=== PATIENT | female | born 1955 | race Caucasian/White ===

== ENCOUNTER 2019-04-17 08:16 | Emergency (ER) | payer OTHER ==
[~2019-04-17] VITALS: Ht 167.6 cm; Wt 81.8 kg
[2019-04-17] MEDS ORDERED: NS 1,000 ML IV SCH (08:44)
[2019-04-17 09:26] LABS: BASO % 0.7 % (0.0-1.0); EOS # 0.1 10^3/uL (0.0-0.50); EOS % 1.7 % (0.0-3.0); HEMATOCRIT 43.7 % (36.0-47.0); HEMOGLOBIN 14.2 g/dl (12.0-15.5); LYMPH % 24.9 % (24.0-44.0); MEAN CORPUSCULAR HEMOGLOBIN 29.5 pg (27.0-33.0); MEAN CORPUSCULAR HGB CONC 32.5 g/dl (32.0-36.5); MEAN CORPUSCULAR VOLUME 90.9 fl (80.0-96.0); MONO # 0.4 10^3/uL (0.0-0.8); MONO % 10.8 % (0.0-5.0); NEUTROPHILS # 2.5 10^3/uL (1.8-7.7); NEUTROPHILS % 61.7 % (36.0-66.0); PLATELET COUNT, AUTOMATED 150 10^3/uL (150-450); RED BLOOD COUNT 4.81 10^6/uL (4.00-5.40); WHITE BLOOD COUNT 4.1 10^3/uL (4.0-10.0)
[2019-04-17] MEDS ORDERED: ISOVUE-370 76% 100ML VIAL (Q9967) As Ordered ONE (09:35)
[2019-04-17 09:56] LABS: ALBUMIN 3.7 GM/DL (3.2-5.2); ALT/SGPT 19 U/L (12-78); BILIRUBIN,DIRECT < 0.1 MG/DL (0.0-0.2); BILIRUBIN,TOTAL 0.5 MG/DL (0.2-1.0); LIPASE 169 U/L (73-393); TOTAL PROTEIN 6.5 GM/DL (6.4-8.2)
[2019-04-17 10:49] LABS: BLOOD UREA NITROGEN 15 MG/DL (7-18); CALCIUM LEVEL 8.5 MG/DL (8.8-10.2); CARBON DIOXIDE LEVEL 30 MEQ/L (21-32); CHLORIDE LEVEL 107 MEQ/L (98-107); CREATININE FOR GFR 0.73 MG/DL (0.55-1.30); GLOMERULAR FILTRATION RATE > 60.0 (>45); GLUCOSE, FASTING 91 MG/DL (70-100); POTASSIUM SERUM 3.9 MEQ/L (3.5-5.1); SODIUM LEVEL 142 MEQ/L (136-145)
[2019-04-17] MEDS ORDERED: NORC1TAB7 PO (11:12)
[2019-04-17] MEDS ORDERED: FLAG500T PO (11:13)
[2019-04-17] MEDS ORDERED: CIPR-249 PO (11:13)
--- NOTE | 2019-04-17 11:25 | REP ---
REASON: right lower quadrant pain. CONTRAST: 100 mL of Isovue 370. PRIORS: None. Lung bases are clear. Multiple low density lesions are seen throughout the hepatic parenchyma. The ones large enough to be evaluated by CT show water Hounsfield unit readings. Multiple lesions are too small for precise CT characterization. No abnormal enhancement is seen in the liver. The gallbladder, spleen, pancreas, adrenal glands, and kidneys are within normal limits. The abdominal aorta and para-aortic regions are within normal limits. The bowel loops and their mesenteries are within normal limits. The appendix is well visualized and by CT criteria, it is within normal limits. There is no periappendiceal fatty infiltration. There is no fatty infiltration or fluid in the mesoappendix. There is no free fluid or free air. CT PELVIS: There is no mass or adenopathy. There is no free fluid or free air. The bowel loops and their mesenteries are within normal limits. Bone window technique through the examination shows the osseous structures to be within normal limits for the patient's age. IMPRESSION: 1. Multiple hepatic cysts are suspected. Followup is suggested. 2. No evidence of acute intra-abdominal or intrapelvic disease. No evidence of appendicitis. Electronically Signed by Zach Das DO 04/17/2019 12:57 P
[2019-04-17 12:45] VITALS: BP 141/93
== END 2019-04-17 12:53 | disposition home or self-care (01) ==
LOC: M ED 08:16
DX: K76.89 Other specified diseases of liver (principal)
CPT/HCPCS: 36415; 74177; 80047; 80048; 80076; 83690; 85025; 99285; Q9967

== ENCOUNTER → 2019-08-18 | Outpatient (CLI) | payer OTHER ==
[~2019-08-18] MED LIST: CIPR-249 PO; FLAG500T PO; NORC1TAB7 PO
--- NOTE | 2019-08-18 16:20 | REP ---
BILATERAL MAMMOGRAM WITH 3D TOMOSYNTHESIS: No family history of breast cancer. Tyrer-zick lifetime risk of breast cancer is 5.3%. Comparison mammogram 04/21/14 as well as other prior studies. Breast parenchyma demonstrates moderate heterogenous density bilaterally. No mass or architectural distortion is seen bilaterally. There appear to be tiny calcifications in the upper outer quadrant of the left breast somewhat posteriorly. I would recommend magnification views to further evaluate. IMPRESSION: ACR 0 incomplete. There appear to be clustered microcalcifications posteriorly in the upper outer quadrant of the left breast. Recommend magnification views to further evaluate. BIRADS 0: BI-RADS/ACR category 0 mammogram, Incomplete: Need additional imaging evaluation and/or prior mammograms for comparison. This mammogram was interpreted with the aid of an FDA-approved computer-aided detection system. The patient states she had a clinical breast exam in 08/2019. The patient letter being requested is M0.
== END ==
LOC: M WHC 14:07
PROVIDERS: ATTEND Nurse Practitioner Women's Health
DX: Z12.31 Encounter for screening mammogram for malignant neoplasm of breast (principal)

== ENCOUNTER → 2019-08-18 | Outpatient (REF) | payer OTHER | LOC: M PLALAB 14:41 | PROVIDERS: ATTEND Nurse Practitioner Women's Health | DX: Z12.4 Encounter for screening for malignant neoplasm of cervix (principal) ==

== ENCOUNTER → 2019-08-25 | Outpatient (CLI) | payer OTHER ==
--- NOTE | 2019-08-25 13:47 | REP ---
Digital diagnostic unilateral left breast mammography with CAD: History: Screening mammography from August 18, 2019 was BIRADS category 0 incomplete because of some microcalcifications grouped in the upper outer quadrant of the left breast not definitely apparent previously. Comparison prior study is from 2013. Diagnostic imaging was recommended. Findings: Magnified focal spot compression CC, true mediolateral, and MLO views of the left breast were obtained. These confirm the presence of a loose grouping of predominantly punctate microcalcifications of different sizes in the upper outer quadrant of the left breast. One or two of these are kaz shaped. No soft tissue mass is seen. No spiculation is observed. No additional abnormality. Impression: BIRADS 4: BI-RADS/ACR category 4 mammogram. Suspicious Abnormality - biopsy should be considered. BIRADS category 4 suspicious left breast imaging. Microcalcific grouping upper outer quadrant left breast. Stereotactic needle biopsy of the left breast recommended. This mammogram was interpreted with the aid of an FDA-approved computer-aided detection system. The patient states she had a clinical breast exam in August 2019 The patient letter being requested is m4 . Electronically Signed by Justin Gee MD 08/25/2019 05:51 P
== END ==
LOC: M RAD 13:02
PROVIDERS: ATTEND Nurse Practitioner Women's Health
DX: R92.2 Inconclusive mammogram (principal)

== ENCOUNTER → 2019-09-06 | Outpatient (CLI) | payer OTHER ==
[~2019-09-06] MED LIST changes: +BRONCHW PO
--- NOTE | 2019-09-06 16:11 | REP ---
Focused left breast sonography: History: Left breast lump at 1 o'clock position. Abnormal mammography on August 25, 2019 showing microcalcifications in the left breast upper outer quadrant. Sonographic findings: The left breast is scanned and 1 o'clock position. There is a hypoechoic somewhat irregular possibly spiculated nodule at 1 o'clock in the left breast located 6.3 cm from the nipple. This lesion measures 9 x 7 x 15 mm in greatest diameter. There are some echogenic foci within it. It may correspond to the mammographic abnormality. It must be considered suspicious on sonographic criteria. Impression: BIRADS category four suspicious focused left breast sonography. Recommend ultrasound guided needle biopsy of this target at 1 o'clock in the left breast with needle biopsy marker clip placement and post clip placement left breast mammography. Electronically Signed by Justin Gee MD 09/06/2019 06:18 P
== END ==
LOC: M RAD 14:19
PROVIDERS: ATTEND Surgery
DX: N63.20 Unspecified lump in the left breast, unspecified quadrant (principal)

== ENCOUNTER → 2019-09-10 | Outpatient (CLI) | payer OTHER ==
[~2019-09-10] MED LIST changes: +LIDOCAINE 1% MDV 20ML VIAL As Ordered ONE; +SODIUM BICARBONATE 8.4% INJ 50MEQ 50 ML VIAL As Ordered ONE
[2019-09-10 09:49] VITALS: BP 151/87
--- NOTE | 2019-09-10 10:19 | REP ---
Digital diagnostic unilateral left breast mammography with CAD: History: The patient is status post ultrasound-guided needle biopsy. Comparison mammography August 25, 2019. Findings: Craniocaudad and true ML views of the left breast demonstrate that the marker clip is seen at the site where prior mammography showed microcalcifications in the upper outer quadrant. There are fewer microcalcifications visible. No significant hematoma is seen. Impression: Marker clip in good position relative to the previously identified grouping of microcalcifications in the upper outer quadrant. Electronically Signed by Justin Gee MD 09/10/2019 10:42 A
--- NOTE | 2019-09-10 12:43 | ROOPDOC ---
[facility] Report Of Operation Report of Operation DATE OF PROCEDURE: 09/10/19 PREPROCEDURE DIAGNOSES: Left breast mass POSTPROCEDURE DIAGNOSES: left breast mass PROCEDURE: Ultrasound guided Left breast mass biopsy with clip placement SURGEON: Kaylyn Shelton D.O. OCCUPATIONAL MEDICINE OFFICER: ANESTHESIA: local anesthetic, 12 cc ESTIMATED BLOOD LOSS: Approximately 1 ml COMPLICATIONS: none DESCRIPTION OF PROCEDURE: Lidocaine [id number] Expiration 10/2020 Sodium Bicarbonate 8.4% lot [id number] Expiration May 09 2020 Hydromark clip lot [id number] Expiration 06/16/2022 REF [id number] Bx device: BARD [id number] x10 cm [id number] Expiration 07/05/2022 REF [id number] Informed consent was obtained in the preop area. The most common risk and possible complications including bleeding, hematoma, bruising, infection, injury to surrounding structures were explained to the patient and she expressed understanding. Patient was taken to the procedure room and placed on the bed in the supine position with the left upper extremity placed above the head. Appropriate time out was done stating patients name, date of , and the procedure to be performed. The left breast was prepped and draped in the usual fashion. The ultrasound was used to confirm the location of the lesion in the left breast at 1:00 6 centimeters from the nipple. Plain Lidocaine 1% and 8.4% sodium bicarbonate 10:1 mix was used to numb the skin, the biopsy site and tissues along the anticipated biopsy tract. Small skin incision was made with blade number 11. BARD Marquee 14G cannula with introducer ([id number]) was inserted through the incision and advanced under the ultrasound guidance to position immediately adjacent to the lesion. Next, the introducer was removed and BARD Marquee 14G biopsy device was places in the cannula. Pre-biopsy imaging, and post-biopsy imaging were captured. Five good core biopsies were taken at various levels of the lesion. Next, the biopsy device was withdrawn and a clip introducer was inserted into the biopsy site via the cannula. The Hydromark clip was deployed under direct vision. Post-clip placement image was captured. Manual pressure over the biopsy cavity and tract was held after the clip introducer was withdrawn. No bleeding was noted upon removal of the pressure. Post-biopsy mammogram of the left breast was obtained and showed clip in expected position. Postprocedural dressing was placed. Patient tolerated procedure well and was taken to the recovery unit in stable condition. Discharge instructions were discussed with the patient and she expressed understanding. KAYLYN Fuentes DO Sep 10, 2019 12:43
--- NOTE | 2019-09-11 09:06 | REP ---
Focused left breast sonography: Sonographic guidance is provided Dr. Bharat sheikh ultrasound-guided breast biopsy procedure. Electronically Signed by Justin Gee MD 09/11/2019 08:57 A
== END ==
LOC: M IRPRO 08:06
PROVIDERS: ATTEND Surgery
DX: D05.12 Intraductal carcinoma in situ of left breast (principal)

== ENCOUNTER → 2019-09-14 | Outpatient (CLI) | payer OTHER ==
[~2019-09-14] MED LIST changes: -LIDOCAINE 1% MDV 20ML VIAL As Ordered ONE; -SODIUM BICARBONATE 8.4% INJ 50MEQ 50 ML VIAL As Ordered ONE
[2019-09-14 17:33] LABS: BASO % 0.5 % (0.0-1.0); EOS # 0.1 10^3/uL (0.0-0.5); HEMATOCRIT 46.1 % (36.0-47.0); HEMOGLOBIN 14.4 g/dl (12.0-15.5); LYMPH # 1.6 10^3/uL (1.5-5.0); LYMPH % 28.8 % (24.0-44.0); MEAN CORPUSCULAR HEMOGLOBIN 28.9 pg (27.0-33.0); MEAN CORPUSCULAR HGB CONC 31.2 g/dl (32.0-36.5); MEAN CORPUSCULAR VOLUME 92.4 fl (80.0-96.0); MONO # 0.5 10^3/uL (0.0-0.8); MONO % 9.3 % (0.0-5.0); NEUTROPHILS # 3.3 10^3/uL (1.5-8.5); NEUTROPHILS % 59.2 % (36.0-66.0); PLATELET COUNT, AUTOMATED 170 10^3/uL (150-450); RED BLOOD COUNT 4.99 10^6/uL (4.00-5.40); WHITE BLOOD COUNT 5.5 10^3/uL (4.0-10.0)
[2019-09-14 18:06] LABS: ALBUMIN 4.1 GM/DL (3.2-5.2); ALT/SGPT 20 U/L (12-78); BILIRUBIN,TOTAL 0.6 MG/DL (0.2-1.0); BLOOD UREA NITROGEN 11 MG/DL (7-18); CARBON DIOXIDE LEVEL 31 MEQ/L (21-32); CHLORIDE LEVEL 105 MEQ/L (98-107); CREATININE FOR GFR 0.88 MG/DL (0.55-1.30); GLOMERULAR FILTRATION RATE > 60.0 (>45); GLUCOSE, FASTING 88 MG/DL (70-100); POTASSIUM SERUM 4.2 MEQ/L (3.5-5.1); SODIUM LEVEL 141 MEQ/L (136-145); TOTAL PROTEIN 7.2 GM/DL (6.4-8.2)
--- NOTE | 2019-09-14 20:12 | REPPI ---
Clinical: Preoperative assessment . Comparison: None . Technique: PA and lateral. Findings: The mediastinum and cardiac silhouette are normal. The lung rodriguez are clear and without acute consolidation, effusion, or pneumothorax. The skeletal structures are intact and normal. Impression: 1. No acute cardiopulmonary process. Electronically Signed by Rivera Knight MD 09/14/2019 08:04 P
== END ==
LOC: M PLAIMG 15:57
PROVIDERS: ATTEND Surgery
DX: Z01.818 Encounter for other preprocedural examination (principal); Z98.890 Other specified postprocedural states

== ENCOUNTER → 2019-09-21 | Outpatient (CLI) | payer OTHER | LOC: M PLALAB 11:42 | PROVIDERS: ATTEND Surgery | DX: Z01.818 Encounter for other preprocedural examination (principal) ==

== ENCOUNTER 2019-10-07 06:38 | Day surgery (SDC) | payer OTHER ==
[~2019-10-07] VITALS: Ht 165.1 cm; Wt 79.8 kg
[~2019-10-07 06:38] MED LIST changes: +HEPARIN SOD (PORCINE) 5000 UNITS/ML VIAL (J1644 PER 1000UNITS) SQ ONE; +LIDOCAINE 1% MDV 20ML VIAL SQ PRN; +LIDOCAINE 2% INJ 100 MG/5 ML SDV (FOR ANES.) As Ordered ONE; +LR 1,000 ML IV ONE; +MIDAZOLAM INJ 2 MG/2 ML VIAL (J2250) As Ordered ONE; +ONDANSETRON 4MG/2ML VIAL (J2405) As Ordered ONE; +ROCURONIUM BROMIDE 50 MG/5 ML VIAL As Ordered ONE; +SUGAMMADEX SODIUM 500 MG/5 ML VIAL (BRIDION) As Ordered ONE; +ceFAZolin SOD 2 GM in IV 1 EA IV ONE; +dexameTHASONE 4 MG/ML 1ML VIAL (J1100) As Ordered ONE; +fentaNYL 250 MCG/5 ML INJECTION (J3010) As Ordered ONE; +propofoL 200 MG/20 ML VIAL As Ordered ONE
[2019-10-07] MEDS ORDERED: LIDOCAINE 5% (LIDODERM) PATCH As Ordered ONE (07:15)
[2019-10-07] MEDS ORDERED: LIDOCAINE 1% MDV 20ML VIAL As Ordered ONE (07:25)
[2019-10-07] MEDS ORDERED: LIDOCAINE 5% (LIDODERM) PATCH TD ONE (08:00)
[2019-10-07] MEDS ORDERED: CONRAY-60 60% 50ML VIAL (Q9961) As Ordered ONE (08:14)
[2019-10-07] MEDS ORDERED: LIDOCAINE 1% SDV INJ 30 ML VIAL As Ordered ONE (10:29)
[2019-10-07] MEDS ORDERED: METHYLENE BLUE 0.5% (5MG/ML) 10 ML AMP (PROVAYBLUE)(Q9968 PER 1MG) As Ordered ONE (10:29)
[2019-10-07] MEDS ORDERED: BUPIVACAINE HCL 0.25% 30 ML VIAL As Ordered ONE (10:29)
[2019-10-07] MEDS ORDERED: METOCLOPRAMIDE INJ 10MG/2ML VIAL (J2765) As Ordered ONE (11:12)
--- NOTE | 2019-10-07 11:12 | REP ---
Left Breast Lymphoscintigraphy The procedure was performed by Sangeeta Valente [facility] [[email or web address]], under the direct supervision of Dr. Mena. The risks and benefits of the procedure were explained to the patient and informed consent was obtained both verbally and written. Directly prior to the start of the procedure, a formal timeout was completed in the procedure room. Using topical anesthetic and sterile technique .935 mCi of technetium 99m filtered sulfur colloid was injected subdermally in eight fractionated periareolar injections. Images obtained 1 hour after injection show dominant left axillary focus. Impression: 1. Dominant left axillary focus. Reviewed by NANCY Lux 10/07/2019 10:32 A Electronically Signed by Javon Mena MD 10/07/2019 11:03 A
--- NOTE | 2019-10-07 11:12 | REP ---
Left breast localization This procedure is performed by NANCY Rendon, under the personal supervision of Dr. Mena. The risks and benefits of the procedure were explained to the patient and informed consent was obtained both verbally and written. Directly prior to the start of the procedure, a formal timeout was done in the procedure room. The lateral approach was utilized. Both the marker clip and posterior grouping of microcalcifications was localized using mammographic guidance. The skin was prepped and draped in a sterile fashion. 5 ml of 1% lidocaine 10 mg/ml was used as a local anesthetic. Two 9-cm [place] needle wire systems were inserted, one anterior to the microclip and the other posterior to the microcalcifications. A followup mammographic images demonstrate good needle placement. The patient tolerated the procedure well and there were no immediate complications. Reviewed by NANCY Lux 10/07/2019 10:34 A Electronically Signed by Javon Mena MD 10/07/2019 11:03 A
[2019-10-07] MEDS ORDERED: propofoL 500 MG/50 ML VIAL As Ordered ONE ×2 (11:13→12:16)
[2019-10-07] MEDS ORDERED: ACETAMINOPHEN 1000MG 100ML IV BTL (OFIRMEV) (J0131 PER 10MG) As Ordered ONE (11:33)
[2019-10-07] MEDS ORDERED: PHENYLephrine HCL 500 MCG/5 ML (100MCG/ML) SYRINGE (J2370) As Ordered ONE (11:37)
[2019-10-07] MEDS ORDERED: TRAM50TA2 PO (14:52)
[2019-10-07] MEDS ORDERED: HYDROMORPHONE HCL 0.5 MG/ 0.5 ML SYRINGE (J1170 PER 1) IV PRN (15:00)
[2019-10-07] MEDS ORDERED: PERCOCET 5MG/325MG TAB PO PRN (15:00)
[2019-10-07] MEDS ORDERED: LR 1,000 ML IV SCH (15:00)
[2019-10-07] MEDS ORDERED: ONDANSETRON 4MG/2ML VIAL (J2405) IV PRN (15:00)
[2019-10-07] MEDS ORDERED: PROMETHAZINE INJ 25 MG/ML VIAL (J2550) IV ONE (15:00)
[2019-10-07] MEDS ORDERED: fentaNYL 100 MCG/2 ML INJECTION (J3010) IV PRN (15:00)
--- NOTE | 2019-10-07 17:16 | REP ---
SPECIMEN RADIOGRAPH: The surgical specimen radiograph is performed. The two localizing wires are seen on each side of the surgical specimen bracketing the metallic clip from the recent biopsy as well as the residual microcalcifications which were posterior to the clip. Radiographically there appears to be adequate surrounding tissue margins. Electronically Signed by Javon Mena MD 10/08/2019 12:40 P
[2019-10-07 18:25] VITALS: BP 122/60
--- NOTE | 2019-10-07 22:47 | ROOPDOC ---
[facility] Report Of Operation Report of Operation DATE OF PROCEDURE: 10/07/19 PREPROCEDURE DIAGNOSES: Left breast cancer POSTPROCEDURE DIAGNOSES: left breast cancer PROCEDURE: Left breast lumpectomy and left sentinel lymph node biopsy SURGEON: Kaylyn Latham D.O. WEIGHER PACKING: ANESTHESIA: general ESTIMATED BLOOD LOSS: Approximately 5 mL. COMPLICATIONS: none REMARKS: two wires, clip and calcifications identified on the intraop imaging. Dr Mena from radiology confirmed that specimen looks good and there is no need for additional excision. DESCRIPTION OF PROCEDURE: INDICATIONS: Ms. De La O is a 64-year-old woman who was found to have suspicious calcifications on screening left breast mammogram. Physical exam she was found to have a palpable mass which was biopsied with the aid of ultrasound and came back as invasive ductal carcinoma, ER positive, CA positive, HER-2 negative, grade 2 with Ki-67 of 90%. Her genetic testing was negative. She opted for [address] conservative surgery with sentinel lymph node biopsy on the left. She was medically cleared for surgery by her primary care doctor. Risks and possible complications of surgical procedure including bleeding, infection and injury to surrounding structures were explained to the patient and she wished to proceed. Consent was signed. My initials were placed on the operative site (left). Since patient has an active diagnosis of cancer, subcutaneous injection of 5000 units of heparin was done in Preop. Wire loc alization of the lesion and injection of radioactive tracer were done in radiology department preoperatively. Two wires were placed demarcating extent of calcifications and the clip marking the invasive tumor. Imaging were reviewed post wire placement. Lymphoscintigraphy results was also reviewed preoperatively. DETAILS: Patient was taken to the operating room and placed on the operating room table. She was given Versed on her way to OR and felt very dizzy upon arrival. This slowly improved prior to induction of general anesthesia. A sign in was called stating patients name, date of and the procedure to be done. Preoperative antibiotics were infused. Smooth induction of general anesthesia was done. Patients hands were extended on arm rests. Care was taken not to over extend the arms. Patients left breast and axilla were prepped and draped in the usual fashion. Care was taken not to displace the wires. Appropriate time out was done and patients name, date of , and the procedure to be done were confirmed. Procedure was started with sentinel lymph node biopsy. Neoprobe was used to locate area of maximum intensity of the signal. Local anesthetic using 1% lidocaine and 0.25 % Marcaine 50/50 mix was injected. An incision was made with scalpel number 15 at the inferior aspect of axillary hair line in the left axilla where the maximum signal was identified. The sharp and blunt dissection was continued through the subcutaneous adipose tissue. Clavipectoral fascia was opened. Neoprobe was used to guide the dissection. First sentinel lymph node was identified and excised. The ex-vivo 10 second count was 9974. Second sentinel lymph node was identified and excised as well. The ex-vivo 10 second count was 3659. The specimens were labeled with patients name and left breast sentinel lymph node number 1 and number 2 respectively and sent to pathology. No additional lymph nodes with high radioactive signal were identified. The 10 second count of the background was 97. Adequate hemostasis was assured. Additi onal local anesthetic was injected into surrounding tissues. Wound was irrigated. Clavipectoral fascia was closed with 3-0 Vicryl interrupted suture. Dermal layer was closed at the end of the case with 3-0 Monocryl and skin was closed with 4-0 Monocryl. Next, our attention was turned toward the left breast. A lateral incision was made between the wires after previous local anesthetic injection. Subcutaneous skin flaps were raised and both wires were carefully pulled into the wound. Dissection was carries outside the bracketed area of the wires. Hydromark clip was identified in the specimen tissue with intraoperative ultrasound exa mination. The end of the wires were identified and the whole lumpectomy was excised. Margins were marked with the surgical inking kit following the standard colors recommendations. Specimen was placed on the grid and placed in [facility] specimen Imaging. The image revealed two wires, the Hydromark clip adjacent to the wire and the calcifications. At this time radiology department was called to aid with evaluation of excised specimen. Dr Mena states that the lumpectomy looks good and there is no need for additional excision. The specimen was labeled with patients name and left breast lumpectomy and sent to pathology. At this point five additional specimen margins were taken: deep, inferior, superior, medial, and anterior. All new margins, defined as margin farthest away from lumpectomy cavity, were marked with black ink. Each margin was sent as a separate specimen with appropriate labeling. Adequate hemostasis was assured. Additional local anesthetic was injected into surrounding tissues. Clips were placed to primo the cavity. space was approximated with 3-0 Vicryl. The dermis was closed with 3-0 Monocryl and skin was closed with 4-0 Monocryl. Dermabond glue was placed over the incision. Patient emerged from the anesthesia without any problems. Fluffs were placed over the operative site and patients chest was wrapped snuggly in the ANSELMO wrap. Patient tolerated procedure well and was taken to recovery unit in stable condition. EBL: 5 cc KAYLYN LATHAM DO Oct 07, 2019 22:47
== END 2019-10-07 18:50 | disposition home or self-care (01) ==
LOC: M SDC 06:38
PROVIDERS: ATTEND Surgery
DX: C50.412 Malignant neoplasm of upper-outer quadrant of left female breast (principal); Z17.0 Estrogen receptor positive status [ER+]; K21.9 Gastro-esophageal reflux disease without esophagitis; J30.9 Allergic rhinitis, unspecified; Z88.6 Allergy status to analgesic agent
CPT/HCPCS: 19125; 36415; 38525; 76098; 78195; 86850; 86900; 86901; 88305; 88307; 88342; A9541; J0131; J0690; J1100; J1644; J2250; J2370; J2405; J2765; J3010

== ENCOUNTER → 2019-10-28 | Outpatient (CLI) | payer OTHER ==
[~2019-10-28] MED LIST changes: -HEPARIN SOD (PORCINE) 5000 UNITS/ML VIAL (J1644 PER 1000UNITS) SQ ONE; -LIDOCAINE 1% MDV 20ML VIAL SQ PRN; -LIDOCAINE 2% INJ 100 MG/5 ML SDV (FOR ANES.) As Ordered ONE; -LR 1,000 ML IV ONE; -MIDAZOLAM INJ 2 MG/2 ML VIAL (J2250) As Ordered ONE; -ONDANSETRON 4MG/2ML VIAL (J2405) As Ordered ONE; -ROCURONIUM BROMIDE 50 MG/5 ML VIAL As Ordered ONE; -SUGAMMADEX SODIUM 500 MG/5 ML VIAL (BRIDION) As Ordered ONE; +TRAM50TA2 PO; -ceFAZolin SOD 2 GM in IV 1 EA IV ONE; -dexameTHASONE 4 MG/ML 1ML VIAL (J1100) As Ordered ONE; -fentaNYL 250 MCG/5 ML INJECTION (J3010) As Ordered ONE; -propofoL 200 MG/20 ML VIAL As Ordered ONE
--- NOTE | 2019-10-29 09:17 | RADONC ---
DATE OF SERVICE: 10/28/2019 DIAGNOSIS: Invasive ductal carcinoma of the left breast [id number], stage I. CHIEF COMPLAINT: Breast CA. HISTORY OF PRESENT ILLNESS: Mrs. De La O is a 64-year-old woman, presented with abnormal screening mammography on 08/18/2019 and which reported for suspicious microcalcification grouping upper outer quadrant of the left breast. Left breast sonography on 09/06/2019 confirmed suspicious focus at 1 o'clock and recommended ultrasound-guided needle biopsy. Bilateral MRI on 09/21/2019,reported enhancing spiculated mass measuring about 1.2 x 1.2 x 1.6 cm in the upper outer quadrant of the left breast. Patient underwent stereotactic left breast biopsy on 10/07/2019, and it showed invasive ductal carcinoma with mucinous features, grade 2, ER 100%, WV 10%, HER2/ya negative, K67 90%. She underwent left breast lumpectomy and sentinel lymph node biopsy. Pathology showed invasive ductal carcinoma, size was 1.5 cm, grade 2 of 3. The final margin was free. 2 sentinel lymph nodes were negative. ER 100% positive, WV 10% moderate intensity, HER2 negative, Ki67 90%. Her oncotype DX came back recurrent score of 12. No CT benefit. PAST MEDICAL HISTORY: She had one section. CURRENT MEDICATIONS: None except multivitamins and D3. REVIEW OF SYSTEMS: CONSTITUTIONAL: She denies fever, chills, night sweats, fatigue or recent weight changes. HEENT: Denies visual disturbance. Denies hearing problems. RESPIRATORY: denies wheezing , shortness of breathing. or cough CARDIOPULMONARY: No chest pain. Denies palpitations, dizziness. She denies shortness of breath, coughing or wheezing. GASTROINTESTINAL: Denies nausea, vomiting, constipation, diarrhea. No rectal bleeding. GENITOURINARY: Denies urinary frequency, dysuria, hematuria, incontinence, or urgency. MUSCULOSKELETAL: Denies bone pain, muscle pain, joint pain. FACILITY DESIGNER: Denies weakness, numbness, headache, dizziness. PHYSICAL EXAMINATION: ECOG PERFORMANCE STATUS: 0 GENERAL: She is well developed and nourished, not in apparent distress. HEENT: Normocephalic, atraumatic, oropharynx clear. NECK:There is no palpable lymphadenopathy in the neck, axilla bilaterally. BREAST EXAMINATION: Both breasts are about the same size. There is well-healed lumpectomy scarring in the upper outer quadrant of the left breast, and it is slightly tender on palpation. No nipple discharge or retraction. CARDIOVASCULAR: Regular rhythm and rate. No murmurs. RESPIRATORY: Clear to auscultation. ABDOMEN: Soft, nontender, nondistended without any palpable mass or organomegaly. SKIN: There are no skin lesions. EXTREMITIES: Without any swelling, cyanosis, or clubbing. NEUROLOGICAL: Strength and sensation grossly intact. PSYCHIATRIC: Mood and affect appropriately. Pathological findings as mentioned in HPI. Radiology per findings as mentioned in HPI. ICD-10 code: C50.412. STAGING: Invasive ductal carcinoma of the left breast, stage 1, [id number]. ASSESSMENT AND RECOMMENDATIONS: Mrs. De La O is a 64-year-old pleasant lady, 1, para 1, presented with abnormal screening mammography on 08/18/2019, which showed clustered microcalcifications in the left breast, and the followup ultrasound, MRI confirmed the abnormal finding in the upper quadrant of the left breast. She underwent stereotactic biopsy of the left breast lesion on 09/10/2019, which showed invasive ductal carcinoma with mucinous features and grade 2 ER, WV positive, HER2/ya negative. On 10/07/2019, she underwent left breast lumpectomy and sentinel node biopsy, and she was pathologically stage T1cN0. The oncotype DX performed and the recurrence score 12 and no chemotherapy benefit. The patient was accompanied by her . We have discussed the nature of the disease and role of radiation therapy and treatment options. lumpectomy followed by radiation therapy is equally effective as mastectomy for local treatment and standard of care. She underwent lumpectomy and rdiation therapy will follow. Oncotype DX recurrence score of 12, and no benefit from CT. Radiation therapy will start as lumpectomy scar healed.. I discussed hypofractionation and also regular fractionation schedule. I explained so far there is no differences in side effects and cosmeses. I discussed the procedures and possible side effects associated with the radiation therapy, and I have given them a chance to ask questions and concerns, and they were answered to their satisfaction. [facility]
== END ==
LOC: M ONCR 08:52
PROVIDERS: ATTEND Radiology Radiation Oncology
DX: C50.919 Malignant neoplasm of unspecified site of unspecified female breast (principal)

== ENCOUNTER → 2019-11-01 | Outpatient (CLI) | payer OTHER | LOC: M WHC 09:48 | PROVIDERS: ATTEND Internal Medicine Hematology & Oncology | DX: C50.919 Malignant neoplasm of unspecified site of unspecified female breast (principal) ==

== ENCOUNTER → 2019-12-07 | Outpatient (RCR) | payer OTHER ==
--- NOTE | 2019-11-09 13:40 | RADONC ---
RADIATION ONCOLOGY SIMULATION NOTE DATE: 11/08/2019 Ms. De La O was taken to the CT scan for CT simulation of her left breast field. CT was accomplished without difficulty or discomfort. Radiation treatment planning is underway and radiation treatments will begin subsequently. An immobilization device was created. It will be used throughout the course of treatment. It was created without difficulty or discomfort. I was physically present throughout the course of CT simulation.
--- NOTE | 2019-11-16 14:18 | RADONC ---
RADIATION ONCOLOGY PROGRESS NOTE DATE: 11/15/2019 CHART #: [id number] Ms. De La O underwent her first fraction of radiation today for a dose of 267 cGy to her left breast. It was tolerated without difficulty or discomfort. REVIEW OF SYSTEMS: The patient's review of systems is noncontributory. Denies nausea, vomiting, fevers, chills, night sweats, diplopia, headaches, anxiety or depression, anorexia, weight loss, visual disturbances, chest pain, urinary or bowel difficulties, bone pain, or neurological problems. PHYSICAL EXAMINATION: Clearly, the patient's skin showed no evidence of radiation changes. This was her first fraction. The remainder of her physical exam also remains unchanged. Ms. De La O tolerated her first fraction without difficulty and radiation will continue as scheduled.
--- NOTE | 2019-11-23 08:48 | RADONC ---
RADIATION ONCOLOGY PROGRESS NOTE DATE: 11/22/2019 CHART #: [id number] Mrs. De La O with a diagnosis of invasive ductal carcinoma of the left breast is currently receiving local regional radiotherapy and is tolerating her therapy reasonably well. She is currently at a dose of approximately 2400 cGy of an anticipated 4000 cGy. She denies any nausea, vomiting, coughing, sputum production or hemoptysis. Her energy level is excellent and she is able to maintain most day-to-day activities without any alteration of her lifestyle. Skin irritation is denied. EXAMINATION FINDINGS: The skin within the irradiated volume shows some minimal hyper erythematous areas without evidence of desquamation. There is no palpable peripheral lymphadenopathy and lungs are clear. The patient is concerned about the possibility of getting the flu and has requested a note to advise that she should not be in crowded areas were she is likely to contract influenza. I gave her a note today to that effect. Otherwise, the patient is tolerating her therapy quite well with no significant untoward side effects. PLAN: Treatments to continue.
--- NOTE | 2019-11-27 10:14 | RADONC ---
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 STAGE: [id number], stage I. Mrs. De La O completed her external beam radiotherapy to the entire breast and was simulated today for initiation of her electron beam boost to the lumpectomy scar site. We will be treating her for total of 1000 additional cGy in 5 fractions via a 16 MeV electron beam via a direct en face field assessed at 90%. She completed the 15 treatments, or approximately 4000 cGy, via 3D conformal radiotherapy with a combination of a 10 and 6 MV photon beam. The simulation was completed with no untoward side effects and the information was sent to dosimetry and physics for appropriate planning. [facility] CENTERAraceli
--- NOTE | 2019-11-29 14:17 | RADONC ---
RADIATION ONCOLOGY PROGRESS NOTE DATE: 11/29/2019 CHART #: [id number] Ms. De La O is presently at a dose of 2937 cGy to her left breast and is tolerating treatments quite well at this point with no complaints related to her radiation therapy. She is having no breast or bone pain. REVIEW OF SYSTEMS: The patient's review of systems is noncontributory. Denies nausea, vomiting, fevers, chills, night sweats, diplopia, headaches, anxiety or depression, anorexia, weight loss, visual disturbances, chest pain, urinary or bowel difficulties, bone pain, or neurological problems. PHYSICAL EXAMINATION: Physical examination was deferred as per COVID-19 virus protections. ASSESSMENT AND PLAN: Radiation is well tolerated and will continue as scheduled.
--- NOTE | 2019-12-06 13:25 | RADONC ---
RADIATION ONCOLOGY PROGRESS NOTE DATE OF SERVICE: 12/06/2019 CHART #: [id number] Ms. De La O is presently at a dose of 4205 cGy to her left breast primary site and is tolerating treatments with some discomfort. REVIEW OF SYSTEMS: The patient's review of systems is positive for some skin pain, especially in the inframammary region. It is otherwise noncontributory. Denies nausea, vomiting, fevers, chills, night sweats, diplopia, headaches, anxiety or depression, anorexia, weight loss, visual disturbances, chest pain, urinary or bowel difficulties, bone pain, or neurological problems. PHYSICAL EXAMINATION: The patient's skin shows erythema and tanning present. There is a small area of moist desquamation in the inframammary region. The remainder of her physical exam remains unchanged. ASSESSMENT: Ms. De La O is tolerating treatments with some skin irritation. I have sent in a prescription for Silvadene to be applied topically. In the meantime, radiation to the primary site will continue as scheduled. The skin in that area is in good condition.
[~2019-12-07] MED LIST changes: +CALC600T60 PO; +SILV40CR EXT; +VITA1CHW7 PO
== END ==
LOC: M ONCR 11-08 09:54
PROVIDERS: ATTEND Radiology Radiation Oncology
DX: C50.412 Malignant neoplasm of upper-outer quadrant of left female breast (principal)

== ENCOUNTER 2019-12-10 08:29 | Outpatient (RCR) | payer OTHER ==
--- NOTE | 2019-12-13 06:32 | RADONC ---
RADIATION ONCOLOGY TREATMENT SUMMARY DATE: 12/10/2019 CHART #: [id number] DIAGNOSIS: Left breast cancer. STAGE: I A, T1c, N0, M0. ECOG PERFORMANCE STATUS: 0. TREATMENT SUMMARY: Ms. De La O is very pleasant 64-year-old white female with the diagnosis of a stage I, T1c, N0, M0, moderately differentiated infiltrating ductal carcinoma of the left breast who presented to us status post lumpectomy and sentinel lymph node biopsy for consideration of postoperative radiation therapy for conservative breast management. We treated the patient to her left breast for a total dose of 4005 cGy delivered in 15 fractions of 267 cGy each over 18 elapsed days of 11/15/2019 through 12/03/2019. The patient's left breast was treated on a linear accelerator utilizing 3-D conformal technique with medial and lateral tangential rodriguez and a combination of 6 X and 10 X photons. Following completion of 4005 cGy to the entire left breast, the primary site was boosted for an additional 1000 cGy delivered in five fractions of 200 cGy each over four elapsed days from 12/06/2019 through 12/10/2019. The patient's primary site was treated on a linear accelerator utilizing a 16 MEV electron beam prescribed to the 90% isodose line via non phos technique. This brought the primary site to a total dose of 5005 cGy delivered in 20 fractions over 22 elapsed days from 11/15/2019 through 12/10/2019. Ms. De La O tolerated her treatments quite well and was able complete therapy as prescribed without interruption. I have scheduled the patient to see me again in 1 month for further followup. She will also continue to be followed by her other physicians as well. cc: DO Edwige Mcelroy NP Ryan Tyler, MD
[2019-12-23] MEDS ORDERED: ANAS1TAB2 PO (09:53)
== END 2020-01-06 ==
LOC: M ONCR 08:29
PROVIDERS: ATTEND Radiology Radiation Oncology
DX: C50.412 Malignant neoplasm of upper-outer quadrant of left female breast (principal)

== ENCOUNTER → 2020-01-12 | Outpatient (CLI) | payer OTHER ==
[~2020-01-12] MED LIST changes: +ANAS1TAB2 PO
--- NOTE | 2020-01-15 13:34 | RADONC ---
RADIATION ONCOLOGY FOLLOWUP NOTE DATE: 01/12/2020 This is a telemedicine visit. The patient was informed of the risks including security breech, technological failure, inability to perform a comprehensive physical exam which could delay or prevent an accurate diagnosis, and potential complications from treatment decisions rendered over a telemedicine platform. The patient understands and consented to the use of telehealth services phone only. DIAGNOSIS: Left breast cancer. STAGE: I A, T1c, pN0, M0, grade 2, HER2/ya negative, ER positive, TX positive. ECOG PERFORMANCE STATUS: 0 FOLLOWUP NOTE: Ms. De La O is a delightful 64-year-old white female with the diagnosis of a stage I A, T1c, N0, M0 moderately differentiated invasive ductal carcinoma of the left breast who is presenting to us today for routine followup visit 1 month post completion of external beam radiation therapy. The patient presents today by telephone reporting that she is doing quite well with no complaints at this time related to her radiation therapy disease. She has no breast or bone pain. REVIEW OF SYSTEMS: The patient's review of systems is noncontributory. Denies nausea, vomiting, fevers, chills, night sweats, diplopia, headaches, anxiety or depression, anorexia, weight loss, visual disturbances, chest pain, urinary or bowel difficulties, bone pain, or neurological problems. PHYSICAL EXAMINATION: Physical exam physical exam was deferred as per COVID-19 precautions. This was a telephone consultation. However, the patient does report that her skin is in excellent condition. It is totally healed. All she has left is a minimal roger according to the patient's report. ASSESSMENT: The patient is clinically NOE at this time. I have set her up for routine followup in our office in 6 months' time. She will also continue her followup with her other physicians as well. cc: DO Edwige Mcelroy NP [place], MD Ryan Tyler, MD
== END ==
LOC: M ONCR 09:15
PROVIDERS: ATTEND Radiology Radiation Oncology
DX: C50.412 Malignant neoplasm of upper-outer quadrant of left female breast (principal)

== ENCOUNTER → 2020-04-07 | Outpatient (CLI) | payer OTHER ==
--- NOTE | 2020-05-05 09:20 | REP ---
FOCUSED LEFT BREAST ULTRASOUND HISTORY: Additional imaging requested by Dr. Shelton. Hypoechoic area 1 o'clock 8 cm from the nipple left breast. History of left breast cancer. This report was delayed due to a protracted network disruption episode experienced by this facility. FINDINGS: Focused left breast sonography is performed at the 1 o'clock position. There is a benign appearing septated otherwise simple cyst measuring 6 x 6 x 5 mm. Normal stromal elements are seen in the background. No suspicious finding. IMPRESSION: Small benign cyst 6-mm in diameter 1 o'clock position left breast. MTDD
== END ==
LOC: M WHC 11:38
PROVIDERS: ATTEND Surgery
DX: N63.20 Unspecified lump in the left breast, unspecified quadrant (principal); Z85.3 Personal history of malignant neoplasm of breast

== ENCOUNTER → 2020-06-14 | Outpatient (REF) | payer OTHER ==
[2020-06-14 11:17] LABS: ALBUMIN 3.7 GM/DL (3.2-5.2); ALT/SGPT 21 U/L (12-78); BILIRUBIN,TOTAL 0.5 MG/DL (0.2-1.0); BLOOD UREA NITROGEN 16 MG/DL (7-18); CARBON DIOXIDE LEVEL 30 MEQ/L (21-32); CHLORIDE LEVEL 105 MEQ/L (98-107); CHOLESTEROL LEVEL 167 MG/DL (<200); CHOLESTEROL RISK RATIO 3.408 (<5); CREATININE FOR GFR 0.77 MG/DL (0.55-1.30); FREE T4 1.14 NG/DL (0.76-1.46); GLOMERULAR FILTRATION RATE > 60.0 (>45); GLUCOSE, FASTING 91 MG/DL (70-100); HDL CHOLESTEROL 49 MG/DL (>40); LDL CHOLESTEROL 98 MG/DL (<100); NON-HDL-C 118 MG/DL; POTASSIUM SERUM 3.9 MEQ/L (3.5-5.1); PTH INTACT 48.9 PG/ML (18.5-88.0); SODIUM LEVEL 139 MEQ/L (136-145); TOTAL 25(OH) VITAMIN D 39.2 NG/ML (30.0-100.0); TOTAL PROTEIN 6.8 GM/DL (6.4-8.2); TRIGLYCERIDES LEVEL 102 MG/DL (<150)
[2020-06-14 13:31] LABS: HEMOGLOBIN A1c 5.3 %
== END ==
LOC: M SFHCPLAZ 08:03
PROVIDERS: ATTEND Family Medicine
DX: E55.9 Vitamin D deficiency, unspecified (principal); M85.80 Other specified disorders of bone density and structure, unspecified site; E66.3 Overweight

== ENCOUNTER → 2020-06-29 | Outpatient (CLI) | payer OTHER ==
--- NOTE | 2020-06-29 09:04 | REP ---
INDICATION: HEPATIC CYST COMPARISON: None. TECHNIQUE: Real time coles scale ultrasound examination using curved array transducer. FINDINGS: Liver demonstrates relatively normal contour, size, and echotexture. A septated cyst in the left lobe measures 2.2 x 1.3 x 1.6 cm, a 1.9 x 1.3 x 2.0 cm complex appearing cyst is identified in the left lobe, and a 2.3 x 1.8 x 2.0 cm cyst is identified in the right lobe. The gallbladder demonstrates multiple small echogenic foci without shadowing suggesting benign polyps up to 4 mm. No biliary ductal dilatation is appreciated and the common bile duct measures 3.7 mm diameter. Pancreas is normal. The right kidney is normal and measures 11.1 x 4.5 x 3.5 cm without hydronephrosis. No ascites. IMPRESSION: 1. Three hepatic cysts are identified which demonstrate septations and are otherwise relatively benign in appearance. Findings are similar to CT dated 04/17/2019 (which demonstrated more numerous simple hepatic cysts). 2. Benign appearing gallbladder polyps up to 4 mm. <Electronically signed by Rivera Knight > 06/29/20 0901
== END ==
LOC: M RAD 08:18
PROVIDERS: ATTEND Family Medicine
DX: K76.89 Other specified diseases of liver (principal); K82.4 Cholesterolosis of gallbladder

== ENCOUNTER → 2020-07-26 | Outpatient (CLI) | payer OTHER ==
--- NOTE | 2020-07-26 11:56 | RADONC ---
Radiation Oncology Hx/FUP Radiation Oncology Hx/FUP Date of Service: Jul 26, 2020 Pt Identifier Sabiha De La O is a 64 year old female seen for a followup visit today at the department of radiation oncology for a history of pT1cN0(sn)M0 ER/AL+ HER2- Oncotype <11 Grade 2 IDC of the left upper outer breast. She is s/p lumpectomy and adjuvant RT 40 Gy in 15 fractions to the left whole breast and 10 Gy in 5 fractions to the tumor bed completed 12/10/19. She continues on anastrozole daily. Diagnosis/Treatment History Oncologic History As above Interval History Feels well overall, has some perseverative thoughts about recurrence of her cancer, this bothers her more than any physical symptom. She notes that her left breast has a higher lie that the right, and that she still has some transient occasional migrating left breast pains. Previously these were quite severe and stabbing in quality, now they are aching and infrequent. Not intense. She has preserved ROM in the left arm, no swelling. No skin concerns. She does self exams frequently. She has a mammogram coming in September, she is afraid of the exam, but vows to move forward with screening. She is tolerating the AI, previously had caused some hot flashes which have now subsided. Current Therapy Anastrozole Stage Stage IA pT1cN0(sn)M0 ER/AL+ HER2- Grade 2 left breast IDC Social History: Prior smoker ~5 pk year Non-drinker Allergies / Meds Allergies: Coded Allergies: TAPE (Verified Adverse Reaction, Intermediate, STERI-STRIPS - BLISTERS SKIN, 10/07/19) epinephrine (Verified Adverse Reaction, Intermediate, heart races, 10/07/19) Home Meds Active Scripts Anastrozole (Anastrozole) 1 Mg Tablet, 1 TAB PO DAILY, #90 TAB 3 Refills Prov:RAKESH SAENZ MD 03/23/20 Reported Medications Calcium Carbonate (Calcium) 600 Mg Tablet, 2 TAB PO DAILY for 30 Days, #30 TAB 11/08/19 Cholecalciferol (Vitamin D3) (Vitamin D3) 2,000 Unit Tab.chew, 2000 UNIT PO DAILY 11/04/19 Multivitamin (Chewable-Yamilka) 1 Each Tab.chew, 1 TAB PO DAILY for 30 Days, #30 TAB 09/09/19 Review of Systems Review of Systems Constitutional: Denies: ROS Unabtainable, Chills, Fever, Malaise, Night Sweats, Weakness, Fatigue, Weight Loss, Lethargy, Normal appetite, Other symptoms Eyes: Denies: Pain, Vision change, Conjunctivae inflammation, Eyelid inflammation, Redness, Other HEENT: Denies: Head Aches, Ear Pain, Dysphagia, Sinus Congestion, Post Nasal Drip, Sore Throat, Epistaxis, Other Symptoms Skin: Denies: Rash, Lesions, Jaundice, Bruising, Other Breast: Denies: New Breast Lumps / Masses, Nipple Retraction, Nipple Discharge, Breast Skin Changes, Breast Pain or Tenderness, Other Breast Complaints Pulmonary: Denies: Dyspnea, Cough, Pleuritic Chest Pain, Other Symptoms Cardiovascular: Denies: Chest Pain, Palpitations, Orthopnea, Paroxysmal Noc. Dyspnea, Edema, Lt Headedness, Other Symptoms Gastrointestinal: Denies: Nausea, Vomiting, Abdominal Pain, Diarrhea, Constipation, Melena, Hematochezia, Other Symptoms Genitourinary: Denies: Dysuria, Frequency, Incontinence, Hematuria, Retention, Other Symptoms Hematologic: Denies: Bruising, Bleeding Excessively, Petecchia, Purpura, Enlarg ed Lymph Nodes, Other Hematologic Endocrine: Denies: Polydipsia, Polyphagia, Polyuria, Heat Intolerance, Cold Intolerance, Other Endocrine Sx Musculoskeletal: Denies: Neck pain, Shoulder pain, Arm pain, Back pain, Hand pain, Leg pain, Foot pain, Joint pain, Muscle pain, Spasms, Gout, Joint sweling, Muscle stiffness, Midthoracic pain, Other Neurological: Denies: Weakness, Numbness, Incoordination, Change in Speech, Confusion, Seizures, Other Symptoms Physical Examination Vital Signs Ht 65" Wt 182 lb BMI 30 T 97.2 P 67 RR 16 BP 120/80 O2 98% Pain 0 Fatigue 0 General Exam: Positive: Alert, Cooperative; Negative: No Acute Distress Eye Exam: Positive: PERRLA, EOMI ENT EXAM: Positive: Atraumatic, Pharynx Normal Neck Exam: Positive: Supple; Negative: Lymphadenopathy Chest Exam: Positive: Clear to auscultation, Normal air movement Heart Exam: Positive: Rate Normal, Regular Rhythm Breast Exam: Positive: Skin Changes (Left breast skin with mild hyperpigmentation); Negative: Symmetric Bilaterally (Right breast lies lower than left), Lumps or Masses (Right breast tissue is soft and supple no lesions. Left breast has palpable central fibrosis, no lesions. No axillary lesions BL), Nipple Retraction, Nipple Discharge Abdomen Exam: Positive: Normal bowel sounds, Soft Extremity Exam: Negative: Edema Skin Exam: Positive: Nl turgor and temperature; Negative: Rash Neuro Exam: Positive: Normal Gait, Normal Speech, Cranial Nerves 3-12 NL Psych Exam: Positive: Mental status NL, Mood NL Diagnostic and Laboratory Diagnostic Review Radiologic images, relevant labs and pathology reports were personally reviewed and discussed with Ms. De La O. Assessment and Plan Impression Assessment Ms. De La O is a 64 year old female with a history of pT1cN0(sn)M0 ER/AL+ HER2- Oncotype <11 Grade 2 IDC of the left upper outer breast. She is s/p lumpectomy and adjuvant RT 40 Gy in 15 fractions to the left whole breast and 10 Gy in 5 fractions to the tumor bed completed 12/10/19. She continues on anastrozole daily. She is doing well. Mild post-RT cutaneous sequelae, fibrosis affecting cosmesis CTCAE Gr 2, this is not overly bothersome to her such that she does not want referral to a plastic surgeon at this time, she also has slight hyperpigmentation of the left breast. Explained this is likely permanent. She has no evidence of recurrent or de ashley lesions on exam today. She is compliant with and tolerating her AI. She has mammograms scheduled for September 2020. She has follow up in place with her surgeon and medical oncologist as well. I will see her again in 12 months time. Performance Status ECOG 0 Plan Follow up in 12 months Ms. De La O was encouraged to call with questions or concerns in the interim period. JEFFREY DONNELLY MD Jul 26, 2020 11:55
== END ==
LOC: M ONCR 09:06
PROVIDERS: ATTEND General Practice
DX: Z85.3 Personal history of malignant neoplasm of breast (principal); Z92.3 Personal history of irradiation

== ENCOUNTER → 2020-08-01 | Outpatient (REF) | payer OTHER | LOC: M SFHCPLAZ 10:07 | PROVIDERS: ATTEND Family Medicine | DX: C44.310 Basal cell carcinoma of skin of unspecified parts of face (principal) ==

== ENCOUNTER → 2020-08-28 | Outpatient (CLI) | payer OTHER ==
--- NOTE | 2020-08-28 14:28 | REPMRS ---
Patient History The patient states she had a clinical breast exam in March 2020. Patient is postmenopausal, has history of cancer in the left breast at age 64, and had previous chest radiation therapy at age 64. No known family history of cancer. Malignant radio exam breast specimen of the left breast, October 07, 2019. Malignant localization of breast nodule of the left breast, October 07, 2019. US Guided Breast Biopsy of the left breast, September 10, 2019. 3D TOMOSYNTHESIS WAS PERFORMED. Volpara breast density b. Diagnostic Bilateral Mammo: August 28, 2020 - Exam #: [id number] Bilateral CC and MLO view(s) were taken. Technologist: Conchis Medina, Technologist Prior study comparison: September 10, 2019, left breast digital mammo diagnostic unilateral, performed at [facility]. August 25, 2019, left breast digital mammo diagnostic unilateral, performed at [facility]. FINDINGS: There are scattered fibroglandular densities. There is a fairly symmetric fibroglandular pattern in both breasts. There has been no interval development of masses, areas of architectural distortion or clusters of microcalcifications typical of malignancy. There are expected postsurgical and post radiation changes in the left breast. Assessment: BI-RADS/ACR category 2 mammogram. Benign Findings. Recommendation Routine screening mammogram of both breasts in 1 year (for women over age 40). This mammogram was interpreted with the aid of an FDA-approved computer-aided dectection system. Electronically Signed By: Javon Mena MD 08/28/20 [id number]
== END ==
LOC: M WHC 13:26
PROVIDERS: ATTEND Surgery
DX: C50.412 Malignant neoplasm of upper-outer quadrant of left female breast (principal)
CPT/HCPCS: 77066; G0279

== ENCOUNTER → 2020-09-13 | Outpatient (CLI) | payer OTHER ==
[~2020-09-13] MED LIST changes: +D31000TA2 PO; +THERTAB52 PO
== END ==
LOC: M LABSMTC 12:46
PROVIDERS: ATTEND Anesthesiology
DX: Z01.812 Encounter for preprocedural laboratory examination (principal); Z20.822 Contact with and (suspected) exposure to COVID-19

== ENCOUNTER 2020-09-18 07:55 | Day surgery (SDC) | payer OTHER ==
[~2020-09-18] VITALS: Ht 167.6 cm; Wt 81.2 kg
[~2020-09-18 07:55] MED LIST changes: +NS 1,000 ML IV ONE
[2020-09-18] MEDS ORDERED: propofoL 500 MG/50 ML VIAL As Ordered ONE (09:36)
[2020-09-18] MEDS ORDERED: LIDOCAINE 2% 100MG/5ML SDV (FOR ANES.) As Ordered ONE (09:36)
--- NOTE | 2020-09-18 09:50 | ROOR ---
Patient Name: Sabiha De La O Procedure Date: 09/18/2020 9:28 AM Date of : 1955 Age: 65 Room: [facility] Gender: Female Note Status: Finalized Procedure: Total Colonoscopy to Cecum Indications: Screening for colorectal malignant neoplasm Providers: Ralph Rollins MD Referring MD: Molina Graf MD Requesting Provider: Medicines: Monitored Anesthesia Care Complications: No immediate complications. Procedure: Pre-Anesthesia Assessment: - The heart rate, respiratory rate, oxygen saturations, blood pressure, adequacy of pulmonary ventilation, and response to care were monitored throughout the procedure. The Colonoscope was introduced through the anus and advanced to the cecum, identified by appendiceal orifice and ileocecal valve. The colonoscopy was performed without difficulty. The patient tolerated the procedure well. The quality of the bowel preparation was good. Findings: The perianal and digital rectal examinations were normal. Non-bleeding internal hemorrhoids were found during retroflexion. The hemorrhoids were small and Grade I (internal hemorrhoids that do not prolapse). No other significant abnormalities were identified in a careful examination of the remainder of the colon. The exam was otherwise without abnormality on direct and retroflexion views. Impression: - Non-bleeding internal hemorrhoids. - The examination was otherwise normal on direct and retroflexion views. - No specimens collected. - The exam was otherwise normal to the cecum. Recommendation: - Patient has a contact number available for emergencies. The signs and symptoms of potential delayed complications were discussed with the patient. Return to normal activities tomorrow. Written discharge instructions were provided to the patient. - High fiber diet. - Discharge patient to home. - Continue present medications. - Repeat colonoscopy in 10 years for screening purposes. - Return to referring physician. - The findings and recommendations were discussed with the patient. Procedure Code(s): --- Professional --- 37073, Colonoscopy, flexible; diagnostic, including collection of specimen(s) by brushing or washing, when performed (separate procedure) Diagnosis Code(s): --- Professional --- Z12.11, Encounter for screening for malignant neoplasm of colon K64.0, First degree hemorrhoids CPT copyright 2019 [employer]. All rights reserved. The codes documented in this report are preliminary and upon truss designer review may be revised to meet current compliance requirements. Ralph Rollins MD Ralph Rollins MD 09/18/2020 9:50:31 AM Electronically signed by Ralph Rollins MD Number of Addenda: 0 Note Initiated On: 09/18/2020 9:28 AM Estimated Blood Loss: Estimated blood loss: none.
[2020-09-18 10:24] VITALS: BP 111/71
== END 2020-09-18 10:26 | disposition home or self-care (01) ==
LOC: M OPP 07:55
PROVIDERS: ATTEND Internal Medicine Gastroenterology
DX: Z12.11 Encounter for screening for malignant neoplasm of colon (principal); K64.0 First degree hemorrhoids; Z92.3 Personal history of irradiation; Z85.3 Personal history of malignant neoplasm of breast; Z88.8 Allergy status to other drugs, medicaments and biological substances; Z91.09 Other allergy status, other than to drugs and biological substances; Z79.899 Other long term (current) drug therapy

== ENCOUNTER → 2020-10-09 | Outpatient (REF) | payer OTHER ==
[~2020-10-09] MED LIST changes: -NS 1,000 ML IV ONE
== END ==
LOC: M SFHCWAGY 10:04
PROVIDERS: ATTEND Nurse Practitioner Women's Health
DX: Z12.4 Encounter for screening for malignant neoplasm of cervix (principal); Z01.419 Encounter for gynecological examination (general) (routine) without abnormal findings

== ENCOUNTER → 2020-11-14 | Outpatient (CLI) | payer OTHER ==
[~2020-11-14] MED LIST changes: +MULTTAB61 PO
--- NOTE | 2020-11-14 10:08 | DEXAMM ---
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 COMPARISON: Comparison DEXA study November 01, 2019 and April 21, 2014.. TECHNIQUE: Bone density was measured using dual-energy x-ray absorptionmetry (DEXA). FINDINGS: AP SPINE L1-L4 BMD 1.226 g/cm2 Young Adult T-Score 0.3 Age Matched Z-Score 1.7. LT FEMUR, TOTAL BMD 0.996 g/cm2 Young Adult T-Score -0.3 Age Matched Z-Score 0.8. LT NECK BMD 0.969 g/cm2 Young Adult T-Score -0.5 Age Matched Z-Score 0.9. RT FEMUR, TOTAL BMD 0.922 g/cm2 Young Adult T-Score -0.7 Age Matched Z-Score 0.4. RT NECK BMD -0.946 g/cm2 Young Adult T-Score -0.7 Age Matched Z-Score 0.7. IMPRESSION: There is normal bone density of the spine. There is normal bone density of the left hip. There is normal bone density of the right hip. The density of the spine has decreased 1.1% since the initial exam on April 21, 2014. The density of the spine decreased 2.3% since most recent exam on November 01, 2019. The density of the left hip has decreased 3.4% since initial exam on April 21, 2014. The density of the left hip has decreased 0.8% since most recent exam on November 01, 2019. The density of the right hip has decreased 5.4% since the initial exam on April 21, 2014. The density of the right hip has decreased 3.2% since the most recent exam on November 01, 2019. FOLLOW-UP: Recommendation for the next bone density exam: 5 years. <Electronically signed by Hugo Gee > 11/14/20 [id number]
== END ==
LOC: M WHC 08:32
PROVIDERS: ATTEND Family Medicine
DX: M85.80 Other specified disorders of bone density and structure, unspecified site (principal)

== ENCOUNTER → 2020-11-28 | Outpatient (REF) | payer OTHER | LOC: M SFHCPLAZ 09:36 | PROVIDERS: ATTEND Family Medicine | DX: R22.31 Localized swelling, mass and lump, right upper limb (principal); L92.9 Granulomatous disorder of the skin and subcutaneous tissue, unspecified ==

== ENCOUNTER → 2021-03-01 | Outpatient (REF) | payer OTHER ==
[2021-03-01 11:18] LABS: ALBUMIN 3.9 GM/DL (3.2-5.2); ALT/SGPT 19 U/L (12-78); BILIRUBIN,TOTAL 0.5 MG/DL (0.2-1.0); BLOOD UREA NITROGEN 14 MG/DL (7-18); CARBON DIOXIDE LEVEL 29 MEQ/L (21-32); CHLORIDE LEVEL 105 MEQ/L (98-107); CHOLESTEROL LEVEL 187 MG/DL (<200); CHOLESTEROL RISK RATIO 3.895 (<5); CREATININE FOR GFR 0.75 MG/DL (0.55-1.30); FREE T4 1.15 NG/DL (0.76-1.46); GLOMERULAR FILTRATION RATE > 60.0 (>45); GLUCOSE, FASTING 92 MG/DL (70-100); HDL CHOLESTEROL 48 MG/DL (>40); LDL CHOLESTEROL 116 MG/DL (<100); NON-HDL-C 139 MG/DL; POTASSIUM SERUM 4.1 MEQ/L (3.5-5.1); SODIUM LEVEL 139 MEQ/L (136-145); TOTAL PROTEIN 6.8 GM/DL (6.4-8.2); TRIGLYCERIDES LEVEL 114 MG/DL (<150)
[2021-03-01 11:21] LABS: TOTAL 25(OH) VITAMIN D 40.2 NG/ML (30.0-100.0)
[2021-03-01 11:29] LABS: PTH INTACT 45.6 PG/ML (18.5-88.0)
== END ==
LOC: M PLALAB 08:11
PROVIDERS: ATTEND Family Medicine
DX: E55.9 Vitamin D deficiency, unspecified (principal); E78.2 Mixed hyperlipidemia

== ENCOUNTER → 2021-07-04 | Outpatient (CLI) | payer OTHER ==
[~2021-07-04] MED LIST changes: +COVI100V IM
--- NOTE | 2021-07-04 10:31 | REP ---
INDICATION: HEPATIC CYST. COMPARISON: 06/29/2020. TECHNIQUE: Real-time sonographic evaluation of right upper quadrant performed. FINDINGS: Multiple sub cm polyps are again seen in the gallbladder up to 4 mm in diameter, stable. No gallstones or gallbladder wall thickening visualized.. There is no intrahepatic or extrahepatic biliary dilatation, common bile duct measures 3 mm in maximum diameter. Multiple cysts are again seen in the liver. The largest 3 cysts are measured: A septated cyst posteriorly on the left measures 3.0 x 2.4 x 1.3 cm, mildly increased in size. A cyst in the superior left lobe measures 2.4 x 1.9 x 1.9 cm. Another simple cyst measures 1.8 x 2.1 x 1.6 cm. The pancreas demonstrates homogeneous echotexture with no gross mass. The right kidney demonstrates no hydronephrosis, with a normal size of 10.7 cm in length. No free fluid is seen. IMPRESSION: Multiple hepatic cysts. There is a septated cyst posteriorly in the left lobe which has mildly increased in size as discussed above. <Electronically signed by Javon Mena > 07/04/21 1026
== END ==
LOC: M RAD 07:07
PROVIDERS: ATTEND Family Medicine
DX: K76.89 Other specified diseases of liver (principal)

== ENCOUNTER → 2021-07-24 | Outpatient (CLI) | payer OTHER ==
[2021-07-24 11:20] LABS: HEMOGLOBIN A1c 5.3 %
[2021-07-24 11:29] LABS: ALBUMIN 3.6 GM/DL (3.2-5.2); BLOOD UREA NITROGEN 15 MG/DL (7-18); CALCIUM LEVEL 9.7 MG/DL (8.8-10.2); CARBON DIOXIDE LEVEL 33 MEQ/L (21-32); CHLORIDE LEVEL 106 MEQ/L (98-107); CREATININE FOR GFR 0.73 MG/DL (0.55-1.30); GLOMERULAR FILTRATION RATE > 60.0 (>45); GLUCOSE, FASTING 92 MG/DL (70-100); PHOSPHORUS LEVEL 3.5 MG/DL (2.5-4.9); POTASSIUM SERUM 4.3 MEQ/L (3.5-5.1); PTH INTACT 22.4 PG/ML (18.5-88.0); SODIUM LEVEL 142 MEQ/L (136-145); TOTAL 25(OH) VITAMIN D 44.3 NG/ML (30.0-100.0)
[2021-07-26 04:07] LABS: INSULIN LEVEL 7.7 uIU/mL (2.6-24.9)
== END ==
LOC: M PLALAB 08:15
PROVIDERS: ATTEND Family Medicine
DX: E55.9 Vitamin D deficiency, unspecified (principal)

== ENCOUNTER → 2021-07-25 | Outpatient (CLI) | payer OTHER ==
--- NOTE | 2021-07-25 09:33 | RADONC ---
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 She is s/p lumpectomy and adjuvant RT 40 Gy in 15 fractions to the left whole breast and 10 Gy in 5 fractions to the tumor bed completed 12/10/19. She continues on anastrozole daily. Diagnosis/Treatment History Oncologic History As above Survivorship Test Due Next Last result Notes TSH, T4* 6m post-tx, then q1y N/A Carotid US* q10 y post-tx N/A Smoking cessation Assess annually if applicable N/A Screening CT chest q1y if eligible per USPSTF N/A Mammograms Min q1y, if breast conservation August negative CBC,CMP, Lipids q1y 2 DEXA q2y if on AI Per medical oncology Interval History Sabiha feels well. She is satisfied with the cosmetic outcome of her surgery/RT. She does have some lateral left breast tenderness, which comes and goes. Not overly bothersome. She has no swelling, or impaired ROM in the arms. She is having mammograms next month and US as well. Appetite and energy good. Current Therapy Anastrozole Stage Stage IA pT1cN0(sn)M0 ER/RI+ HER2- Grade 2 left breast IDC Social History: Prior smoker ~5 pk year Non-drinker Allergies / Meds Allergies: Coded Allergies: TAPE (Verified Adverse Reaction, Intermediate, STERI-STRIPS - BLISTERS SKIN, 10/07/19) epinephrine (Verified Adverse Reaction, Intermediate, heart races, 10/07/19) Home Meds Active Scripts Anastrozole (Anastrozole) 1 Mg Tablet, 1 TAB PO DAILY, #90 TAB 3 Refills Prov:RAKESH SAENZ MD 03/23/21 Reported Medications Covid-19 Vacc,Mrna(Moderna)/Pf (Moderna Covid19 Vacc(Unapprov)) 100 Mcg/0.5 Ml Vial, 100 MCG IM, VIAL 03/20/21 Multivitamin,Therapeutic (Thera-Tabs) 1 Each Tablet, 1 TAB PO DAILY, TAB 1/4/21 Cholecalciferol (Vitamin D3) (Vitamin D3) 1,000 Unit Tablet, 2000 UNITS PO DAILY, TAB 09/11/20 Calcium Carbonate (Calcium) 600 Mg Tablet, 2 TAB PO DAILY for 30 Days, #30 TAB 11/08/19 Review of Systems Review of Systems Constitutional: Denies: Fatigue Eyes: Denies: Pain HEENT: Denies: Head Aches Skin: Denies: Rash Breast: Reports: Breast Pain or Tenderness; Denies: New Breast Lumps / Masses, Nipple Retraction, Nipple Discharge, Breast Skin Changes Cardiovascular: Denies: Chest Pain Musculoskeletal: Denies: Arm pain Neurological: Denies: Weakness, Numbness Psych: Reports: Mood Normal Physical Examination Vital Signs Wt 178 lbs P 58 RR 18 BP 131/80 O2 97% Pain 1 Fatigue 0 General Exam: Alert, Cooperative, No Acute Distress Eye Exam: PERRLA, EOMI ENT EXAM: Atraumatic Neck Exam: Supple; Negative: Lymphadenopathy Breast Exam: Symmetric Bilaterally (Dense breast tissue, palpable surgical site left lateral breast); Negative: Lumps or Masses, Nipple Retraction, Nipple Discharge, Skin Changes (No hyperpigmentation of the left breast evident) Skin Exam: Nl turgor and temperature Neuro Exam: Normal Gait, Normal Speech, Cranial Nerves 3-12 NL Psych Exam: Mental status NL Diagnostic and Laboratory Diagnostic Review Radiologic images, relevant labs and pathology reports were personally reviewed and discussed with Ms. De La O. Assessment and Plan Impression Assessment Ms. 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 She is s/p lumpectomy and adjuvant RT 40 Gy in 15 fractions to the left whole breast and 10 Gy in 5 fractions to the tumor bed completed 12/10/19. She continues on anastrozole daily. Her exam today is reassuring, no lesions appreciated. She has close mammographic and medical oncology follow up. No significant late sequelae of RT, previously noted fibrosis and hyperpigmentation have resolved. She is happy with cosmesis. She does have some fleeting pains in the left breast, which I counseled are typically chronic s/p surgery and RT. Sometimes medications like gabapentin help reduce the frequency of these, but there is no truly effective medication. Will see her again in 12 months. Performance Status ECOG 0 Plan Follow up in 12 months Ms. De La O was encouraged to call with questions or concerns in the interim period. Billing Statement Total time of [24] minutes was spent preparing for the visit [1], obtaining HPI [4], examining the patient [4], reviewing diagnostic tests [2], discussing management options [6], coordinating care [1], and writing this note [6]. JEFFREY DONNELLY MD Jul 25, 2021 09:33
== END ==
LOC: M ONCR 08:47
PROVIDERS: ATTEND General Practice
DX: C50.412 Malignant neoplasm of upper-outer quadrant of left female breast (principal); Z92.3 Personal history of irradiation; Z87.891 Personal history of nicotine dependence

== ENCOUNTER → 2021-08-29 | Outpatient (CLI) | payer OTHER | LOC: M WHC 08:03 | PROVIDERS: ATTEND Surgery | DX: Z12.31 Encounter for screening mammogram for malignant neoplasm of breast (principal); Z85.3 Personal history of malignant neoplasm of breast; Z78.0 Asymptomatic menopausal state | CPT/HCPCS: 77066; G0279 ==

== ENCOUNTER → 2021-12-25 | Outpatient (CLI) | payer OTHER ==
[~2021-12-25] MED LIST changes: -D31000TA2 PO; +VITA100093 PO
[2021-12-25 11:11] LABS: INR 0.97; PARTIAL THROMBOPLASTIN TIME 26.4 SECONDS (25.9-37.0); PROTHROMBIN TIME 13.3 SECONDS (12.7-14.5)
[2021-12-25 11:23] LABS: ALBUMIN 3.8 GM/DL (3.2-5.2); ALT/SGPT 26 U/L (12-78); BILIRUBIN,TOTAL 0.6 MG/DL (0.2-1.0); BLOOD UREA NITROGEN 12 MG/DL (7-18); CALCIUM LEVEL 8.8 MG/DL (8.8-10.2); CARBON DIOXIDE LEVEL 33 MEQ/L (21-32); CHLORIDE LEVEL 105 MEQ/L (98-107); CREATININE FOR GFR 0.74 MG/DL (0.55-1.30); GLOMERULAR FILTRATION RATE > 60.0 (>45); GLUCOSE, FASTING 88 MG/DL (70-100); POTASSIUM SERUM 4.2 MEQ/L (3.5-5.1); SODIUM LEVEL 140 MEQ/L (136-145); TOTAL PROTEIN 6.4 GM/DL (6.4-8.2)
[2021-12-25 11:24] LABS: HEMOGLOBIN A1c 5.4 %
[2021-12-25 11:30] LABS: CREATININE, URINE 64.9 MG/DL; MALB URINE SIEMENS < 5.0 MG/L; MAU/CREAT RATIO 7.7 MCG/MG (0.0-30.0)
== END ==
LOC: M PLALAB 07:39
PROVIDERS: ATTEND Family Medicine
DX: R73.01 Impaired fasting glucose (principal)

== ENCOUNTER → 2022-02-07 | Outpatient (REF) | payer OTHER | LOC: M PLALAB 16:39 | PROVIDERS: ATTEND Advanced Practice Midwife | DX: Z01.419 Encounter for gynecological examination (general) (routine) without abnormal findings (principal); Z12.4 Encounter for screening for malignant neoplasm of cervix ==

== ENCOUNTER → 2022-05-29 | Outpatient (CLI) | payer OTHER ==
[~2022-05-29] MED LIST changes: +ALPR0.5T3 PO
[2022-05-29 10:41] LABS: ALBUMIN 3.7 GM/DL (3.2-5.2); BLOOD UREA NITROGEN 14 MG/DL (7-18); CARBON DIOXIDE LEVEL 32 MEQ/L (21-32); CHLORIDE LEVEL 104 MEQ/L (98-107); CREATININE FOR GFR 0.68 MG/DL (0.55-1.30); GLOMERULAR FILTRATION RATE > 60.0 (>45); GLUCOSE, FASTING 84 MG/DL (70-100); PHOSPHORUS LEVEL 3.5 MG/DL (2.5-4.9); SODIUM LEVEL 137 MEQ/L (136-145)
[2022-05-29 10:50] LABS: HEMOGLOBIN A1c 5.6 %
[2022-05-29 11:16] LABS: MALB URINE SIEMENS 12.7 MG/L; MAU/CREAT RATIO 5.7 MCG/MG (0.0-30.0)
[2022-05-29 11:17] LABS: PTH INTACT 55.2 PG/ML (18.5-88.0); TOTAL 25(OH) VITAMIN D 26.6 NG/ML (30.0-100.0)
[2022-05-30 10:08] LABS: APOLIPOPROTEIN B/A-1 RATIO 0.8 ratio (0.0-0.6); H PYLORI SERUM QUANT IgG ABY 0.32 (0.00-0.79); INSULIN LEVEL 6.3 uIU/mL (2.6-24.9)
== END ==
LOC: M PLALAB 07:07
PROVIDERS: ATTEND Family Medicine
DX: E55.9 Vitamin D deficiency, unspecified (principal); K21.9 Gastro-esophageal reflux disease without esophagitis; R73.01 Impaired fasting glucose; E78.2 Mixed hyperlipidemia

== ENCOUNTER 2022-06-19 13:30 | Outpatient (CLI) | payer OTHER ==
[~2022-06-19] VITALS: Ht 165.1 cm; Wt 79.5 kg
[2022-06-19 13:30] VITALS: BP 150/79
[~2022-06-19 13:30] MED LIST changes: +ZOLEDRONIC ACID 5 MG in IV 1 EA IV ONE
[2022-06-19 14:35] VITALS: BP 108/65
== END 2022-06-19 14:35 | disposition home or self-care (01) ==
LOC: M INFU 13:30
PROVIDERS: ATTEND Family Medicine
DX: M85.80 Other specified disorders of bone density and structure, unspecified site (principal); Z88.8 Allergy status to other drugs, medicaments and biological substances
CPT/HCPCS: 96413; J3489

== ENCOUNTER → 2022-06-19 | Outpatient (CLI) | payer OTHER | LOC: M WHC 06:48 | PROVIDERS: ATTEND Family Medicine | DX: K76.89 Other specified diseases of liver (principal) ==

== ENCOUNTER → 2022-08-23 | Outpatient (CLI) | payer MEDICARE, OTHER ==
[~2022-08-23] MED LIST changes: -ZOLEDRONIC ACID 5 MG in IV 1 EA IV ONE
== END ==
LOC: M ONCR 10:20
PROVIDERS: ATTEND General Practice
DX: C50.412 Malignant neoplasm of upper-outer quadrant of left female breast (principal); N60.32 Fibrosclerosis of left breast; Z79.811 Long term (current) use of aromatase inhibitors; Z79.899 Other long term (current) drug therapy; Z88.8 Allergy status to other drugs, medicaments and biological substances; Z91.048 Other nonmedicinal substance allergy status; Z92.3 Personal history of irradiation

== ENCOUNTER → 2022-08-26 | Outpatient (CLI) | payer OTHER | LOC: M WHC 08:56 | PROVIDERS: ATTEND Nurse Practitioner Women's Health | DX: C50.912 Malignant neoplasm of unspecified site of left female breast (principal) | CPT/HCPCS: 77066; G0279 ==

== ENCOUNTER → 2022-10-23 | Outpatient (CLI) | payer MEDICARE, OTHER ==
[2022-10-23 11:34] LABS: HEMOGLOBIN A1c 5.5 % (4.0-6.0)
[2022-10-23 14:28] LABS: C REACTIVE PROTEIN QUANTITATIV < 0.40 MG/DL (<1.0)
[2022-10-23 14:29] LABS: CPK CREATINE PHOSPHOKINASE 137 U/L (34-145)
[2022-10-23 14:41] LABS: ALBUMIN 3.6 G/DL (3.2-5.2); ALKALINE PHOSPHATASE 55 U/L (46-116); ALT/SGPT 19 U/L (7.0-40); AST/SGOT 21 U/L (<34); BILIRUBIN,TOTAL 0.5 MG/DL (0.3-1.2); BLOOD UREA NITROGEN 17 MG/DL (9-23); CALCIUM LEVEL 8.5 MG/DL (8.3-10.6); CARBON DIOXIDE LEVEL 28 MMOL/L (20-31); CHLORIDE LEVEL 106 MMOL/L (98-107); CHOLESTEROL LEVEL 171 MG/DL (<200); CHOLESTEROL RISK RATIO 3.53 (<5); CREATININE FOR GFR 0.77 MG/DL (0.55-1.30); FREE T4 1.15 NG/DL (0.89-1.76); GLOMERULAR FILTRATION RATE > 60.0 (>45); GLUCOSE, FASTING 91 MG/DL (74-106); HDL CHOLESTEROL 48.4 MG/DL (>40); NON-HDL-C 123 MG/DL; POTASSIUM SERUM 4.4 MMOL/L (3.5-5.1); SODIUM LEVEL 143 MMOL/L (136-145); THYROID STIMULATING HORMONE 2.282 uIU/ML (0.55-4.78)
[2022-10-23 21:44] LABS: LDL CHOLESTEROL 105.4 MG/DL (<100); TOTAL PROTEIN 6.2 G/DL (5.7-8.2); TRIGLYCERIDES LEVEL 86 MG/DL (<150)
== END ==
LOC: M PLALAB 07:27
PROVIDERS: ATTEND Family Medicine
DX: E78.2 Mixed hyperlipidemia (principal)

== ENCOUNTER → 2023-05-16 | Outpatient (CLI) | payer OTHER ==
[2023-05-16 11:43] LABS: ALBUMIN 3.8 G/DL (3.2-5.2); ALKALINE PHOSPHATASE 61 U/L (46-116); ALT/SGPT 23 U/L (7.0-40); AST/SGOT 16 U/L (<34); BILIRUBIN,TOTAL 0.5 MG/DL (0.3-1.2); BLOOD UREA NITROGEN 16 MG/DL (9-23); CALCIUM LEVEL 8.9 MG/DL (8.3-10.6); CARBON DIOXIDE LEVEL 31 MMOL/L (20-31); CHLORIDE LEVEL 104 MMOL/L (98-107); CREATININE FOR GFR 0.79 MG/DL (0.55-1.30); GLOMERULAR FILTRATION RATE > 60.0 (>45); GLUCOSE, FASTING 90 MG/DL (74-106); POTASSIUM SERUM 4.1 MMOL/L (3.5-5.1); PTH INTACT 58.9 PG/ML (18.5-88.0); SODIUM LEVEL 139 MMOL/L (136-145); TOTAL PROTEIN 6.6 G/DL (5.7-8.2)
[2023-05-16 11:44] LABS: TOTAL 25(OH) VITAMIN D 28.9 NG/ML (20.0-100.0)
[2023-05-16 11:59] LABS: CREATININE, URINE 129.2 MG/DL
[2023-05-16 12:01] LABS: MAU/CREAT RATIO 5.4 MCG/MG (0.0-30.0)
[2023-05-16 12:34] LABS: HEMOGLOBIN A1c 5.6 % (4.0-6.0)
[2023-05-17 13:08] LABS: TISSUE TRANSGLUTAMINASE IgA <2 U/mL (0-3)
== END ==
LOC: M PLALAB 07:30
PROVIDERS: ATTEND Family Medicine
DX: R73.01 Impaired fasting glucose (principal)

== ENCOUNTER → 2023-08-26 | Outpatient (CLI) | payer MEDICARE, OTHER | LOC: M WHC 09:51 | PROVIDERS: ATTEND Nurse Practitioner Women's Health | DX: Z12.31 Encounter for screening mammogram for malignant neoplasm of breast (principal) ==

== ENCOUNTER → 2023-10-16 | Outpatient (CLI) | payer OTHER ==
[2023-10-16 11:11] LABS: HEMOGLOBIN A1c 5.4 % (4.0-6.0)
[2023-10-16 11:12] LABS: CHOLESTEROL RISK RATIO 3.38 (<5); HDL CHOLESTEROL 51.1 MG/DL (>40); LDL CHOLESTEROL 105.1 MG/DL (<100); NON-HDL-C 121.9 MG/DL
[2023-10-16 11:13] LABS: TOTAL 25(OH) VITAMIN D 33.8 NG/ML (20.0-100.0)
[2023-10-17 00:28] LABS: PTH INTACT 64.4 PG/ML (18.5-88.0)
== END ==
LOC: M PLALAB 07:20
PROVIDERS: ATTEND Family Medicine
DX: E55.9 Vitamin D deficiency, unspecified (principal); R73.01 Impaired fasting glucose; E78.2 Mixed hyperlipidemia

== ENCOUNTER → 2023-10-20 | Outpatient (REF) | payer OTHER, MEDICARE | LOC: M SFHCPLAZ 13:17 | PROVIDERS: ATTEND Family Medicine | DX: R73.01 Impaired fasting glucose (principal); E78.2 Mixed hyperlipidemia; K76.0 Fatty (change of) liver, not elsewhere classified; Z53.9 Procedure and treatment not carried out, unspecified reason ==

== ENCOUNTER → 2024-04-20 | Outpatient (CLI) | payer OTHER ==
[~2024-04-20] MED LIST changes: +ONDA-282 PO
[2024-04-20 11:52] LABS: HEMOGLOBIN A1c 5.4 % (4.0-6.0)
[2024-04-20 12:07] LABS: C REACTIVE PROTEIN QUANTITATIV < 0.40 MG/DL (<1.0)
[2024-04-20 12:09] LABS: ALBUMIN 3.9 G/DL (3.2-5.2); ALKALINE PHOSPHATASE 79 U/L (46-116); ALT/SGPT 18 U/L (7.0-40); AST/SGOT 19 U/L (<34); BILIRUBIN,TOTAL 0.4 MG/DL (0.3-1.2); BLOOD UREA NITROGEN 11 MG/DL (9-23); CALCIUM LEVEL 8.6 MG/DL (8.3-10.6); CARBON DIOXIDE LEVEL 30 MMOL/L (20-31); CHLORIDE LEVEL 104 MMOL/L (98-107); CHOLESTEROL LEVEL 196 MG/DL (<200); CHOLESTEROL RISK RATIO 3.72 (<5); CREATININE FOR GFR 0.76 MG/DL (0.55-1.30); FREE T4 1.22 NG/DL (0.89-1.76); GLOMERULAR FILTRATION RATE > 60.0 (>45); GLUCOSE, FASTING 92 MG/DL (74-106); HDL CHOLESTEROL 52.6 MG/DL (>40); LDL CHOLESTEROL 125.2 MG/DL (<100); NON-HDL-C 143.4 MG/DL; POTASSIUM SERUM 4.1 MMOL/L (3.5-5.1); SODIUM LEVEL 138 MMOL/L (136-145); THYROID STIMULATING HORMONE 3.077 uIU/ML (0.55-4.78); TOTAL PROTEIN 6.5 G/DL (5.7-8.2); TRIGLYCERIDES LEVEL 91 MG/DL (<150)
== END ==
LOC: M PLALAB 07:09
PROVIDERS: ATTEND Family Medicine
DX: R73.01 Impaired fasting glucose (principal); E78.2 Mixed hyperlipidemia; K76.0 Fatty (change of) liver, not elsewhere classified

== ENCOUNTER → 2024-08-13 | Outpatient (CLI) | payer MEDICARE, OTHER | LOC: M RAD 09:00 | PROVIDERS: ATTEND Family Medicine | DX: K76.0 Fatty (change of) liver, not elsewhere classified (principal); K82.4 Cholesterolosis of gallbladder; K76.89 Other specified diseases of liver ==

== ENCOUNTER → 2024-08-26 | Outpatient (CLI) | payer MEDICARE, OTHER ==
[~2024-08-26] MED LIST changes: +TRIA1CR80 TOP
== END ==
LOC: M ONCR 08:19
PROVIDERS: ATTEND General Practice
DX: Z08 Encounter for follow-up examination after completed treatment for malignant neoplasm (principal); Z85.3 Personal history of malignant neoplasm of breast; Z98.890 Other specified postprocedural states; Z92.3 Personal history of irradiation; Z79.811 Long term (current) use of aromatase inhibitors; Z88.8 Allergy status to other drugs, medicaments and biological substances; Z91.048 Other nonmedicinal substance allergy status; Z79.899 Other long term (current) drug therapy; L73.9 Follicular disorder, unspecified

== ENCOUNTER → 2024-08-31 | Outpatient (CLI) | payer MEDICARE, OTHER | LOC: M WHC 08:45 | PROVIDERS: ATTEND Specialist | DX: Z85.3 Personal history of malignant neoplasm of breast (principal); Z79.899 Other long term (current) drug therapy; Z79.811 Long term (current) use of aromatase inhibitors ==

== ENCOUNTER → 2024-08-31 | Outpatient (CLI) | payer MEDICARE, OTHER | LOC: M WHC 08:45 | PROVIDERS: ATTEND Specialist | DX: Z85.3 Personal history of malignant neoplasm of breast (principal); R92.323 Mammographic fibroglandular density, bilateral breasts; Z79.899 Other long term (current) drug therapy; Z79.811 Long term (current) use of aromatase inhibitors | CPT/HCPCS: 77066; 77080; G0279 ==

== ENCOUNTER → 2024-10-05 | Outpatient (CLI) | payer MEDICARE, OTHER ==
[2024-10-05 11:57] LABS: ALBUMIN 3.6 G/DL (3.2-5.2); ALKALINE PHOSPHATASE 59 U/L (35-104); ALT/SGPT 21 U/L (7.0-40); AST/SGOT 19 U/L (<34); BILIRUBIN,TOTAL 0.5 MG/DL (0.3-1.2); BLOOD UREA NITROGEN 14 MG/DL (9-23); CALCIUM LEVEL 8.2 MG/DL (8.3-10.6); CARBON DIOXIDE LEVEL 30 MMOL/L (20-31); CHLORIDE LEVEL 105 MMOL/L (98-107); CHOLESTEROL LEVEL 192 MG/DL (<200); CHOLESTEROL RISK RATIO 3.74 (<5); CREATININE FOR GFR 0.72 MG/DL (0.55-1.30); GLOMERULAR FILTRATION RATE > 60.0 (>45); GLUCOSE, FASTING 92 MG/DL (74-106); HDL CHOLESTEROL 51.3 MG/DL (>40); LDL CHOLESTEROL 120.9 MG/DL (<100); NON-HDL-C 140.7 MG/DL; POTASSIUM SERUM 4.1 MMOL/L (3.5-5.1); SODIUM LEVEL 144 MMOL/L (136-145); TOTAL PROTEIN 6.4 G/DL (5.7-8.2); TRIGLYCERIDES LEVEL 99 MG/DL (<150)
[2024-10-05 11:59] LABS: FREE T4 1.26 NG/DL (0.89-1.76); THYROID PEROXIDASE ANTIBODY < 28.0 U/ML (<60.0)
[2024-10-05 12:00] LABS: THYROID STIMULATING HORMONE 2.088 uIU/ML (0.55-4.78)
[2024-10-05 12:35] LABS: HEMOGLOBIN A1c 5.4 % (4.0-6.0)
== END ==
LOC: M PLALAB 08:31
PROVIDERS: ATTEND Family Medicine
DX: R73.01 Impaired fasting glucose (principal); E78.2 Mixed hyperlipidemia

== ENCOUNTER → 2025-04-05 | Outpatient (CLI) | payer MEDICARE, OTHER ==
[2025-04-05 11:21] LABS: ALT/SGPT 21.0 U/L (7.0-40); AST/SGOT 22.0 U/L (<34); CALCIUM LEVEL 8.1 MG/DL (8.3-10.6); CARBON DIOXIDE LEVEL 29.0 MMOL/L (20-31); CHLORIDE LEVEL 104.0 MMOL/L (98-107); CHOLESTEROL LEVEL 188.0 MG/DL (<200); CHOLESTEROL RISK RATIO 3.7 (<5); CREATININE FOR GFR 0.8 MG/DL (0.55-1.30); FREE T4 1.23 NG/DL (0.89-1.76); GLOMERULAR FILTRATION RATE 80.7 (>45); LDL CHOLESTEROL 117.4 MG/DL (<100); NON-HDL-C 137.2 MG/DL; POTASSIUM SERUM 4.1 MMOL/L (3.5-5.1); PTH INTACT 119.7 PG/ML (18.5-88.0); SODIUM LEVEL 142.0 MMOL/L (136-145); TOTAL 25(OH) VITAMIN D 31.8 NG/ML (20.0-100.0); TRIGLYCERIDES LEVEL 99.0 MG/DL (<150)
[2025-04-05 12:12] LABS: ESTIMATED AVERAGE GLUCOSE 105.0 MG/DL (60-110)
== END ==
LOC: M PLALAB 08:39
PROVIDERS: ATTEND Family Medicine
DX: R73.01 Impaired fasting glucose (principal); E55.9 Vitamin D deficiency, unspecified; E78.2 Mixed hyperlipidemia

== ENCOUNTER → 2025-08-26 | Outpatient (CLI) | payer MEDICARE, OTHER | LOC: M ONCR 08:22 | PROVIDERS: ATTEND General Practice | DX: Z08 Encounter for follow-up examination after completed treatment for malignant neoplasm (principal); Z85.3 Personal history of malignant neoplasm of breast; Z92.3 Personal history of irradiation; Z79.811 Long term (current) use of aromatase inhibitors; Z88.8 Allergy status to other drugs, medicaments and biological substances; Z91.048 Other nonmedicinal substance allergy status ==

== ENCOUNTER → 2025-09-05 | Outpatient (CLI) | payer MEDICARE, OTHER | LOC: M WHC 11:04 | PROVIDERS: ATTEND Surgery | DX: Z85.3 Personal history of malignant neoplasm of breast (principal) | CPT/HCPCS: 77066; G0279 ==